=== PATIENT | female | born 1990 | race Caucasian/White ===

== ENCOUNTER 2017-05-13 08:45 | Emergency (ER) | payer SELFPAY ==
[~2017-05-13] VITALS: Ht 162.6 cm; Wt 145.2 kg
== END 2017-05-13 09:02 | disposition home or self-care (01) ==
LOC: ED 08:45
DX: Z00.8 Encounter for other general examination (principal)

== ENCOUNTER 2017-05-16 10:49 | Day surgery (SDC) | payer OTHER ==
[~2017-05-16] VITALS: Ht 162.6 cm; Wt 143.8 kg
[2017-05-16] MEDS ORDERED: NORCO 5-325 TA1 EACH PO (11:31)
[2017-05-16] MEDS ORDERED: IBUPROFEN200 M1 PO (11:31)
[2017-05-16] MEDS ORDERED: BACTRIM DS TAB1 EACH PO (11:32)
--- NOTE | 2017-05-16 13:30 | NUR ---
05/16/17 1330 DaisyBlade newman SAT 100, O2 DECREASED TO 6L VIA MASK.
[2017-05-16] MEDS ORDERED: BACTROBAN15 GM TOP (15:07)
[2017-05-16] MEDS ORDERED: NORCO 10-325 T1 EACH PO (15:07)
--- NOTE | 2017-05-16 15:29 | NUR ---
1415: PATIENT OOB WITH RN ASSIST. GAIT STEADY. VOID WITHOUT DIFFICULTY. GAIT STEADY BACK TO ROOM. GIVEN JELLO. AT BEDSIDE. CALL LIGHT WITHIN REACH. 1525: PATIENT TOLERATED JELLO. DISCHARGE INSTRUCTIONS GIVEN TO PATIENT AND . IV DC'D WNL. DRESSING APPLIED. PATIENT DISCHARGED TO HOME WITH VIA WHEELCHAIR.
--- NOTE | 2017-05-17 15:20 | OR ---
[facility] [address], [place] [address] Signed DATE OF PROCEDURE: 05/16/17 PREOPERATIVE DIAGNOSIS Right upper quadrant abdominal wall abscess (8 x 10 cm). POSTOPERATIVE DIAGNOSIS Right upper quadrant abdominal wall abscess (8 x 10 cm). PROCEDURE Incision and drainage, right upper quadrant abdominal abscess. Deep wound cultures. ESTIMATED BLOOD LOSS: None. INDICATIONS Jatinder is a 27-year-old obese female who had moved up to our area from [place] with her and 7 children. Three of those children are hers and 4 adopted. 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 About 6 days ago, she woke up with pain and swelling in the abdominal wall along the right costal margin. They had been out fishing and she thinks maybe she was stung by a wasp, but she is not sure. It has gotten worse even in the face of her Bactrim. Her primary care provider did an in office ultrasound and it seems like it is at least 5-6 cm in diameter. Consequently, he asked me to see her as a general surgeon on-call. Yesterday afternoon in the office, we could see that it was very warm, red, and painful. However, it has not drained. I explained to Jatinder, this is simply too large and too painful to do in the office. We therefore added her on to our OR schedule today. I explained to Jatinder, would make an incision in that area to allow the pus out, would pack it with 1 long piece of 4 inch wide Kerlix gauze soaked in Dakin's solution. She can remove that tomorrow morning and then shower as usual and cover with dry gauze and tape. We also decided to add Clindamycin to Bactrim and she will use Bactroban ointment around that area. Her primary care provider gave her 20 Hydrocodone tablets, I will ahead and give her another prescription to extend that out a few more days. She had expressed understanding and wished to proceed. PROCEDURE NOTE I met with Jatinder and her family in our preop area. We could easily identify the area and we marked that appropriately. Jatinder was then taken into the operating room and placed in a supine position under general endotracheal tube anesthesia. She was given preoperative antibiotics along with subcutaneous heparin. SCDs were utilized. She was then prepped and draped in the usual sterile fashion. We could see a small 3 or 4 mm scab on the inferior portion of that cellulitis and swollen area. It was almost in the crease of her skin. We went ahead and pulled that off and there was just a little punctate areas in the skin underneath. We went ahead and took our cautery and extended Electronically Signed By: EULALIA BONILLA MD 05/17/17 1520 PATIENT NAME: JATINDER VICTORIA EBER OPERATIVE REPORT DATE OF : 86 PHYSICIAN: EULALIA BONILLA MD REPORT #: [id number] REPORT IS CONFIDENTIAL AND NOT TO BE RELEASED WITHOUT AUTHORIZATION [facility] [address] [place] [id number] Signed that transversely over the course of about 2.5 cm. We got copious amounts of pus from this area. With my index finger then, I explored the wound and broke up a few loculations, and sure enough the cavity itself was 5 or 6 cm in diameter. We irrigated the wound several times with warm antibiotic saline solution. We repeated the digital exam of the wound and had all the loculations broken up. We went ahead and injected local anesthetic into her skin and then we packed the wound with full strength Dakin's solution. This was covered with dry gauze and tape. After this, she was awakened from her anesthesia, extubated in the OR, and taken to recovery room in stable condition. MD ALLI Linda/Simon /[id number] cc: LAURIE Mccall Electronically Signed By: EULALIA BONILLA MD 05/17/17 1520 PATIENT NAME: CATRACHITA CATALANJATINDER BANKS OPERATIVE REPORT DATE OF : 86 PHYSICIAN: EULALIA BONILLA MD REPORT #: [id number] REPORT IS CONFIDENTIAL AND NOT TO BE RELEASED WITHOUT AUTHORIZATION
== END 2017-05-16 15:25 | disposition home or self-care (01) ==
LOC: DS 10:49
PROVIDERS: Colon & Rectal Surgery
PROC: 0H97XZZ Drainage of Abdomen Skin, External Approach (ICD-10-PCS; principal; 2017-05-16 12:45)
DX: L02.211 Cutaneous abscess of abdominal wall (principal); Z87.891 Personal history of nicotine dependence
CPT/HCPCS: 00400; 80048; 84703; 85025; 87070; 87075; 87077; 87186; 87205; J0330; J1100; J1644; J1885; J2250; J2405; J2704; J3010; J3490; J7120